=== PATIENT | female | born 1930 | race Caucasian/White ===

== ENCOUNTER → 2016-07-22 | Outpatient (CLI) | payer MEDICARE ==
[~2016-07-22] MED LIST: GADOBUTROL 7.5 MMOL/7.5 ML VIAL IV ONE
--- NOTE | 2016-07-22 15:58 | RAD ---
MR angiogram of the neck Indication:RIGHT CAROTID BLOCKAGE, NO SX HX, NO PRIORS, 4.5ML GADAVIST Technique: 2-D [id number]-[id number] imaging was performed through the neck. MIP reformations were created. Findings: The 2-D [id number] images show normal direction of flow in all 4 vessels with no significant decrease in flow related enhancement. The 3-D udwf-dm-rhkjsu postcontrast images show moderate to high-grade stenosis of the proximal internal carotid artery on the right and moderate stenosis on the left. The right vertebral artery is dominant and appears widely patent throughout its course. The left vertebral artery is nondominant but also appears patent. 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 No decreased flow related enhancement. Electronically signed by: Gary Adames MD (07/22/2016 3:55 PM)
== END | disposition home or self-care (01) ==
LOC: MRI 08:00
PROVIDERS: ATTEND Family Medicine
DX: I65.21 Occlusion and stenosis of right carotid artery (principal)
CPT/HCPCS: 70549; A9585